=== PATIENT | male | born 1980 | race African-American/Black ===

== ENCOUNTER 2018-12-21 00:32 | Emergency (ER) | payer MEDICAID ==
[~2018-12-21] VITALS: Ht 185.4 cm; Wt 217.7 kg
[2018-12-21 00:40] VITALS: BP 142/97
[2018-12-21] MEDS ORDERED: methylPREDNISolone SOD SUCC 125 MG/2 ML VL IM ONE (01:30)
[2018-12-21] MEDS ORDERED: PHENAZOPYRIDINE HCL 100 MG TAB PO ONE (01:30)
[2018-12-21] MEDS ORDERED: cefTRIAXone SOD 1,000 MG VL IM ONE (01:30)
== END 2018-12-21 02:39 | disposition home or self-care (01) ==
LOC: ER 00:34
DX: H66.93 Otitis media, unspecified, bilateral (principal); M10.9 Gout, unspecified
CPT/HCPCS: 96372; 99283; J0696; J2930

== ENCOUNTER 2019-07-21 11:12 | Emergency (ER) | payer MEDICAID ==
[~2019-07-21] VITALS: Ht 185.4 cm; Wt 217.7 kg
[2019-07-21 12:22] VITALS: BP 175/105
[2019-07-21] MEDS ORDERED: KETOROLAC TROMETH 60MG/2ML VIAL IM ONE (13:00)
== END 2019-07-21 13:22 | disposition home or self-care (01) ==
LOC: ER 11:19
DX: M25.562 Pain in left knee (principal); I10 Essential (primary) hypertension; Z90.49 Acquired absence of other specified parts of digestive tract
CPT/HCPCS: 73562; 96372; 99283; J1885